=== PATIENT | female | born 1975 | race African-American/Black ===

== ENCOUNTER 2018-04-02 14:23 | Emergency (ER) | payer SELFPAY ==
--- NOTE | 2018-04-02 14:34 | Emergency Department Report ---
Blank Doc - Documentation Documentation: This is a 42-year-old female that presents with right flank pain with radiation to right abdominal. Also has hematuria and dysuria. This initial assessment diagnostic orders/clinical plan/treatment(s) is/are subject to change based on patient's health status, clinical progression and re- assessment by fellow clinical providers in the ED. Further treatment and workup at subsequent clinical providers discretion. Patient/guardians urged not to elope from ED s their condition may be serious if not clinically assessed and managed. Initial orders include: 1-Patient sent to [facility] for further evaluation and treatment 2- UA 3- Labs 4- Toradol
[2018-04-02] MEDS ORDERED: TORADOL IM ONE (14:36)
[2018-04-02] MEDS ORDERED: TORADOL ONE (14:39)
[2018-04-02 15:04] LABS: Basophils # (Auto) 0.1 K/mm3 (0.0-0.1); Basophils % (Auto) 0.6 % (0.0-1.8); Eosinophils % (Auto) 0.1 % (0.0-4.3); Hematocrit 37.1 % (30.3-42.9); Hemoglobin 12.4 gm/dl (10.1-14.3); Lymphocytes # (Auto) 2.7 K/mm3 (1.2-5.4); Mean Corpuscular HGB Conc 34 % (30-34); Mean Corpuscular Volume 86 fl (79-97); Monocytes # (Auto) 0.8 K/mm3 (0.0-0.8); Monocytes % (Auto) 5.4 % (0.0-7.3); Platelet Count 386 K/mm3 (140-440); Red Blood Count 4.33 M/mm3 (3.65-5.03); Red Cell Distribution Width 15.9 % (13.2-15.2)
[2018-04-02 15:17] LABS: BUN/Creatinine Ratio 14; Blood Urea Nitrogen 7 mg/dL (7-17); Calcium 8.8 mg/dL (8.4-10.2); Hemolysis Index 14
[2018-04-02 15:27] LABS: Bilirubin,Urine NEG (Negative); Blood,Urine MOD (Negative); Color,Urine Amber (Yellow); Urobilinogen,Urine < 2.0 mg/dL (<2.0)
[2018-04-02 15:28] LABS: HCG Qualitative,Urine Negative (Negative)
[2018-04-02 15:29] LABS: RBC,Urine > 182.0 /HPF (0.0-6.0); WBC,Urine > 182.0 /HPF (0.0-6.0)
[2018-04-02 17:53] VITALS: BP 131/86
--- NOTE | 2018-04-02 18:34 | Emergency Department Report ---
ED Female HPI - General Chief complaint: Urogenital-Female Stated complaint: PAINFUL URINATION Time Seen by Provider: 04/02/18 14:33 Source: patient Mode of arrival: Ambulatory Limitations: No Limitations - History of Present Illness Initial comments: This is a 42-year-old female here for urinary burning in 2 days. She denies any fever or chills. Denies any abdominal back pain. Denies any nausea or vomiting. Denies any medical problem. Burning pain is 10/10 on urinate and no pain without urinating and no medication taken. Last menstrual cycle was 03/13/2018. Complaint: dysuria Onset/Timin -: days(s) Location: other (pain with urinating and) Radiation: non-radiating Severity: severe Severity scale (0 -10): 8 Quality: burning Consistency: intermittent Improves with: other Worsens with: urination Are you Now?: No Last Menstrual Period: 03/13/18 EDC: 12/18/18 Associated Symptoms: dysuria. denies: vaginal discharge, vaginal bleeding, abdominal pain, nausea/vomiting, fever/chills, headaches, loss of appetite, hematuria, rash, seizure, shortness of breath, syncope, weakness - Related Data Sexually active: Yes Previous Rx's Medication Instructions Recorded Last Taken Type Ciprofloxacin HCl [Ciprofloxacin 500 mg PO Q12H 10 Days #20 tab 04/02/18 Unknown Rx TAB] Fluconazole [Diflucan TAB] 200 mg PO QDAY 3 Days #3 tablet 04/02/18 Unknown Rx Naproxen [Naprosyn] 500 mg PO BID PRN #12 tablet 04/02/18 Unknown Rx Phenazopyridine [Pyridium] 200 mg PO TID PRN 3 Days #9 tab 04/02/18 Unknown Rx Allergies Allergy/AdvReac Type Severity Reaction Status Date / Time Penicillins Allergy Unknown Verified 04/02/18 14:40 ED Review of Systems ROS: Stated complaint: PAINFUL URINATION Other details as noted in HPI Constitutional: denies: chills, fever ENT: denies: ear pain, throat pain, congestion Respiratory: denies: cough, shortness of breath, wheezing Cardiovascular: denies: chest pain, palpitations, edema, syncope Gastrointestinal: denies: abdominal pain, nausea, vomiting, constipation Genitourinary: dysuria, frequency. denies: urgency, hematuria, discharge, abnormal menses, dyspareunia Musculoskeletal: denies: back pain, joint swelling, arthralgia, myalgia Skin: denies: rash Neurological: denies: headache ED Past Medical Hx - Past Medical History Previous Medical History?: No - Surgical History Past Surgical History?: No - Family History Family history: no significant - Social History Smoking Status: Never Smoker Substance Use Type: None - Medications Home Medications: Home Medications Medication Instructions Recorded Confirmed Last Taken Type Ciprofloxacin HCl [Ciprofloxacin 500 mg PO Q12H 10 Days #20 tab 04/02/18 Unknown Rx TAB] Fluconazole [Diflucan TAB] 200 mg PO QDAY 3 Days #3 tablet 04/02/18 Unknown Rx Naproxen [Naprosyn] 500 mg PO BID PRN #12 tablet 04/02/18 Unknown Rx Phenazopyridine [Pyridium] 200 mg PO TID PRN 3 Days #9 tab 04/02/18 Unknown Rx ED Physical Exam - General Limitations: No Limitations General appearance: alert, in no apparent distress - Head Head exam: Present: atraumatic, normocephalic - Eye Eye exam: Present: normal appearance, PERRL, EOMI Pupils: Present: normal accommodation - ENT ENT exam: Present: normal exam, normal orophraynx, mucous membranes moist - Neck Neck exam: Present: normal inspection, full ROM. Absent: tenderness - Respiratory Respiratory exam: Present: normal lung sounds bilaterally. Absent: respiratory distress, chest wall tenderness - Cardiovascular Cardiovascular Exam: Present: regular rate, normal rhythm, normal heart sounds - GI/Abdominal GI/Abdominal exam: Present: soft, normal bowel sounds. Absent: distended, tenderness, guarding, rebound, rigid, organomegaly - Extremities Exam Extremities exam: Present: normal inspection, full ROM, normal capillary refill, other (No cce. + 2 pulses in all extremities, no neurovascular compromise). Absent: tenderness, pedal edema, joint swelling - Back Exam Back exam: Present: normal inspection, full ROM, other (ambulates without any difficulties). Absent: tenderness, CVA tenderness (R), CVA tenderness (L), muscle spasm, paraspinal tenderness, vertebral tenderness, rash noted - Neurological Exam Neurological exam: Present: alert, oriented X3, normal gait - Psychiatric Psychiatric exam: Present: normal affect, normal mood - Skin Skin exam: Present: warm, dry, intact, normal color. Absent: rash ED Course Vital Signs 04/02/18 04/02/18 04/02/18 14:31 14:40 17:48 Temperature 98 F Pulse Rate 89 84 Respiratory 20 18 16 Rate Blood Pressure 165/109 Blood Pressure 131/86 [Right] O2 Sat by Pulse 100 98 Oximetry - Reevaluation(s) Reevaluation #1: 04/02/18 19:32 Patient given Toradol 30 mg IM and emergency room for urinary pain. She is stab le at present Reevaluation #2: 04/02/18 19:33 Patient to receive Levaquin 500 mg and Pyridium. ED Medical Decision Making - Lab Data Result diagrams: 04/02/18 14:47 04/02/18 14:47 Lab Results 04/02/18 04/02/18 04/02/18 Range/Units 14:47 14:47 15:10 WBC 14.3 H (4.5-11.0) K/mm3 RBC 4.33 (3.65-5.03) M/mm3 Hgb 12.4 (10.1-14.3) gm/dl Hct 37.1 (30.3-42.9) % MCV 86 (79-97) fl MCH 29 (28-32) pg MCHC 34 (30-34) % RDW 15.9 H (13.2-15.2) % Plt Count 386 (140-440) K/mm3 Lymph % (Auto) 19.0 (13.4-35.0) % [place] % (Auto) 5.4 (0.0-7.3) % Eos % (Auto) 0.1 (0.0-4.3) % Baso % (Auto) 0.6 (0.0-1.8) % Lymph # 2.7 (1.2-5.4) K/mm3 [place] # 0.8 (0.0-0.8) K/mm3 Eos # 0.0 (0.0-0.4) K/mm3 Baso # 0.1 (0.0-0.1) K/mm3 Seg Neutrophils % 74.9 H (40.0-70.0) % Seg Neutrophils # 10.7 H (1.8-7.7) K/mm3 Sodium 137 (137-145) mmol/L Potassium 3.6 (3.6-5.0) mmol/L Chloride 102.9 (98-107) mmol/L Carbon Dioxide 21 L (22-30) mmol/L Anion Gap 17 mmol/L BUN 7 (7-17) mg/dL Creatinine 0.5 L (0.7-1.2) mg/dL Estimated GFR > 60 ml/min BUN/Creatinine Ratio 14 % Glucose 109 H (65-100) mg/dL Calcium 8.8 (8.4-10.2) mg/dL Urine Color [place] (Yellow) Urine Turbidity Cloudy (Clear) Urine pH 8.0 H (5.0-7.0) Ur Specific [place] 1.015 (1.003-1.030) Urine Protein 100 mg/dl (Negative) mg/dL Urine Glucose (UA) Neg (Negative) mg/dL Urine Ketones Neg (Negative) mg/dL Urine Blood Mod (Negative) Urine Nitrite Pos (Negative) Urine Bilirubin Neg (Negative) Urine Urobilinogen < 2.0 (<2.0) mg/dL Ur Leukocyte Esterase Lg (Negative) Urine WBC (Auto) > 182.0 H (0.0-6.0) /HPF Urine RBC (Auto) > 182.0 (0.0-6.0) /HPF U Epithel Cells (Auto) 2.0 (0-13.0) /HPF Urine WBC Clumps 3+ /HPF Urine Yeast (Budding) 2+ /HPF Urine HCG, Qual Negative (Negative) Urine culture sent - Medical Decision Making This is a 42-year-old female here for painful urination and found to have urinary tract infection with cloudy urine, positive nitrites large amount of leukocyte Estrace large amount of white blood cell red blood cell but in yeast clumps of white blood cell and moderate amount of blood. Negative . Her CBC stable except she has slight elevation in white count with slight shift to the left BMP is stable. I discussed the patient's her diagnosis and treatment plan and laboratory results she was understanding. She was given Toradol in triage for urinary pain. Patient received Levaquin and Pyridium in emergency room prior to discharge. Her vital signs are stable she is afebrile and she is in no acute distress. Patient discharged home in stable condition with prescription for ciprofloxacin to start tomorrow and Pyridium along with naproxen. - Differential Diagnosis pyelonephritis, acute cystitis, Critical care attestation.: If time is entered above; I have spent that time in minutes in the direct care of this critically ill patient, excluding procedure time. ED Disposition Clinical Impression: Acute cystitis with hematuria, Dysuria, Yeast cystitis Disposition: TO HOME OR SELFCARE Is pt being admited?: No Does the pt Need Aspirin: No Condition: Stable Instructions: Dysuria (ED), Urinary Tract Infection in Women (ED), Vaginitis (ED) Additional Instructions: Please follow up with the primary care doctor at [facility] in 2-3 days. If his symptoms worsen, you develop fever, nausea and vomiting, abdominal or back pain, please return to the emergency room DARIAN otherwise follow up with your primary care Take Pyridium for urinary burning You also have a yeast infection and he will need to take Diflucan Takes ciprofloxacin for urinary tract infection and start taking this medication tomorrow morning as you were started on Levaquin and emergency room. You can take naproxen also for pain. Take this medication with food and is prescribed. Por favor, milton un seguimiento con el mdico de atencin primaria en [facility] en 2-3 hollis. Si cinthia sntomas empeoran, usted desarrolla fiebre, nuseas y vmitos, dolor abdominal o de espalda, por favor regrese a la bal de emergencias DARIAN de lo contrario, milton un seguimiento con leonard atencin primaria [place] Pyridium para la quema urinaria Tambin tiene ivone infeccin por levaduras y tendr que rajendra Diflucan Miri ciprofloxacina para la infeccin del tracto urinario y empezar a rajendra cynthia medicamento maana por la maana bree se inici en Levaquin y bal de emergencias. Tambin puede rajendra naproxeno para el dolor. [place] cynthia medicamento con alimentos y se le recetan. Referrals: WALESKA KHAN MD [Primary Care Provider] - 2-3 Days Forms: Work/School Release Form(ED) Print Language: PANAMAN[place]
[2018-04-02] MEDS ORDERED: LEVAQUIN PO ONE (19:33)
[2018-04-02] MEDS ORDERED: PYRIDIUM PO ONE (19:33)
== END 2018-04-02 19:48 | disposition home or self-care (01) ==
LOC: ED 14:23
DX: N30.01 Acute cystitis with hematuria (principal); B37.41 Candidal cystitis and urethritis; Z88.0 Allergy status to penicillin
CPT/HCPCS: 36415; 80048; 81001; 81025; 85025; 87086; 96372; 99283; J1885; 87076; 87186